=== PATIENT | male | born 1955 | race Caucasian/White ===

== ENCOUNTER 2019-04-06 18:40 | Emergency (ER) | payer MEDICAID ==
[~2019-04-06] VITALS: Ht 170.2 cm; Wt 80.3 kg
[~2019-04-06 18:40] MED LIST: ACET-2139 PO; AMLO10TA4 GT; ASPI-992 PO; BACL10TA GT; BISA10SU61 RC; CLON1PAT13 TD; CRAN3875 GT; DOCU50LI GT; ESOM40CA PO; HYDR-4075 PO; LABE200T5 PO; LEVE750T4 GT; LISI40TA4 GT; MAGN400O6 GT; METF-440 PO; MULT473L GT; NA P133E RC; POTA20TA74 GT; SPIR50TA GT
--- NOTE | 2019-04-06 19:01 | NUR ---
PATIENT BIB [facility] SENT HERE FROM SNF FOR FACIAL DROOP. HX OF CVA & LT FACIAL DROOP. PATIENT WITH TRACH ON COOL AEROSOL. A&O X 3, NO ACUTE DISTRESS. VERBALLY RESPONSIVE.
--- NOTE | 2019-04-06 19:02 | NUR ---
DR SULLIVAN AT BEDSIDE
[2019-04-06 19:08] LABS: BASOPHILS % (AUTO) 0.5 % (0.0-2.0); EOSINOPHILS % (AUTO) 1.3 % (0.0-6.0); HEMATOCRIT 32 % (39-51); HEMOGLOBIN 10.8 g/dL (13.5-17.5); LYMPHOCYTES # (AUTO) 1.7 /CMM (0.8-4.8); LYMPHOCYTES % (AUTO) 18.3 % (20.0-44.0); MEAN CORPUSCULAR HGB CONC 34 g/dl (31.0-36.0); MEAN CORPUSCULAR VOLUME 87 fL (80-96); MONOCYTES # (AUTO) 0.5 /CMM (0.1-1.30); MONOCYTES % (AUTO) 5.5 % (2.0-12.0); NEUTROPHILS # (AUTO) 6.7 /CMM (1.8-8.9); NEUTROPHILS % (AUTO) 74.4 % (43.0-81.0); PLATELET COUNT (AUTO) 179 /CMM (150-450); RED BLOOD CELL COUNT(AUTO) 3.69 MIL/uL (4.5-6.0); WHITE BLOOD COUNT (AUTO) 9.1 K/uL (4.3-11.0)
--- NOTE | 2019-04-06 19:13 | NUR ---
ONLINE CONTENT EDITOR AT BEDSIDE
--- NOTE | 2019-04-06 19:13 | NUR ---
REPORT GIVEN TO MYAH COSBY FOR CELINE
--- NOTE | 2019-04-06 19:15 | NUR ---
Robinson burgess in [facility] - 04/06/19 at 1926 by LARRY RECEIVED PT ADN REPORT FROM ALEA LEVY FOR CELINE.
--- NOTE | 2019-04-06 19:15 | NUR ---
PT AND REPORT RECEIVED FROM ALEA LEVY FOR CELINE.
[2019-04-06 19:17] LABS: CALCIUM, SERUM 8.3 mg/dL (8.5-10.1); CARBON DIOXIDE 36 mmol/L (21-32); CHLORIDE 103 mmol/L (98-107); CREATININE 0.8 mg/dL (0.6-1.3); GLUCOSE 222 mg/dL (74-106); POTASSIUM 3.9 mmol/L (3.5-5.1); SODIUM SERUM 142 mmol/L (136-145); UREA NITROGEN, BLOOD 12 mg/dL (7-18)
[2019-04-06 19:25] LABS: ALANINE AMINOTRANSFERASE 18 U/L (12-78); ALKALINE PHOSPHATASE 70 U/L (46-116); ASPARTATE AMINOTRANSFERASE 17 U/L (15-37); BILIRUBIN,DIRECT 0.1 mg/dL (0.0-0.2); BILIRUBIN,TOTAL 0.2 mg/dL (0.2-1.0)
--- NOTE | 2019-04-06 19:25 | NUR ---
URINE SPECIMEN UBTAINED VIA STRAUGHT CATH. SENT TO LAB
--- NOTE | 2019-04-06 19:25 | NUR ---
Robinson burgess in [facility] - 04/06/19 at 1926 by LARRY URINE COLLECTED VIA STRAIGHT CAT SENT TO LAB.
[2019-04-06 19:26] LABS: ALBUMIN 2.8 g/dL (3.4-5.0)
[2019-04-06 19:27] LABS: TOTAL PROTEIN, SERUM 6.6 g/dL (6.4-8.2)
--- NOTE | 2019-04-06 19:30 | NUR ---
BEING WHEELED TO CT. WENT WITH PT AT BEDSIDE
[2019-04-06 19:31] LABS: BILIRUBIN,URINE Negative (NEGATIVE); BLOOD, URINE Trace-intact Ery/uL (NEGATIVE); COLOR,URINE Yellow (YELLOW); KETONES,URINE Negative (NEGATIVE); LEUKOCYTE ESTERASE ,URINE Negative (NEGATIVE); NITRITE, URINE Negative (NEGATIVE); PROTEIN,URINE Negative (NEGATIVE); UGLUCOSE Negative (NEGATIVE)
--- NOTE | 2019-04-06 19:40 | NUR ---
BACK TO ER BED [address]
[2019-04-06 19:42] LABS: APPEARANCE,URINE SLIGHTLY CLOUDY (CLEAR)
[2019-04-06 19:47] LABS: BACTERIA,URINE Few /HPF (None Seen); SQUAMOUS EPITHELIAL CELL,UR Few /HPF (None Seen); WBC,URINE 0-2 /HPF (0-3)
--- NOTE | 2019-04-06 19:49 | NUR ---
Robinson burgess in ED - 04/06/19 at 1951 by JUAN PT IS GOING TO CT VIA [facility].
--- NOTE | 2019-04-06 20:31 | NUR ---
CALLED [facility] RE: RADIOLOGY READ.
--- NOTE | 2019-04-06 20:50 | NUR ---
EMT SENT CT IMAGING RESULT TO DR. RIVERO - NEUROLOGY.
--- NOTE | 2019-04-06 21:02 | NUR ---
LUIS EDUARDO EWING 2333 TRIP NO #[id number]
--- NOTE | 2019-04-06 21:21 | NUR ---
CALLED [facility] TO GIVE REPORT THAT PT IS GOING BACK. ETA P/U [id number]. REPORT GIVEN TP ALEA BURGER
[2019-04-06 21:53] LABS: BAND % (MANUAL) 2 % (0.0-5.0); EOSINOPHILS % (MANUAL) 1 % (0-4); LYMPHOCYTES % (MANUAL) 19 % (16-48); MONOCYTES % (MANUAL) 5 % (0-11.0); MYELOCYTES % 2 % (0-0); NEUTROPHILS % (MANUAL) 69 (42-76); REACTIVE LYMPHOCYTES 2 % (0-0)
--- NOTE | 2019-04-06 22:34 | NUR ---
Patient discharged to home in stable condition TO SNF. Written and verbal after care instructions given. EMT verbalizes understanding of instruction. PT'S BP IS 158/73. AMBULANZ EMT'S ARE TAKING THE PT BACK TO [facility] VIA AMBULANCE. COPY OF ALL LABS AND IMAGING IN CHART. REPORT GIVEN TO [facility] BY ALEA GLASGOW.
[2019-04-06 22:40] VITALS: BP 158/73
== END 2019-04-06 22:45 | disposition home or self-care (01) ==
LOC: ER 18:42
DX: I62.03 Nontraumatic chronic subdural hemorrhage (principal); I10 Essential (primary) hypertension; E11.9 Type 2 diabetes mellitus without complications; R51 Headache; Z93.1 Gastrostomy status; Z79.82 Long term (current) use of aspirin; Z98.2 Presence of cerebrospinal fluid drainage device; Z93.0 Tracheostomy status
CPT/HCPCS: 36415; 70450-TC; 71045-TC; 80048-TC; 80076-TC; 81000-TC; 84484-TC; 85025-TC

== ENCOUNTER 2021-12-28 13:11 | Inpatient (IN) | payer MEDICARE, OTHER ==
[~2021-12-28] VITALS: Ht 177.8 cm; Wt 99.8 kg
[~2021-12-28 13:11] MED LIST changes: +LISI40TA13 GT; -LISI40TA4 GT
--- NOTE | 2021-12-28 13:15 | NUR ---
BIB RA 102 FROM SNF FOR WEAKNESS AND "ALTERED MORE THAN USUAL," LWN 0900 TODAY. REPORTED TO BE HYPOTENSIVE IN THE FIELD WITH SYSTOLIC BP IN 60s. 250 ML NS GIVEN MASS SPEC, CURRENT BP 100/50. BS 288 MASS SPEC. AAOX3, BREATHING EVEN AND UNLABORED. NOT IN RESP DISTRESS. POX 100% ON 4L TRACH COLAR. FEVER. WILL CONTINUE TO MONITOR.
--- NOTE | 2021-12-28 13:30 | NUR ---
urine sample obtained and sent to lab
[2021-12-28] MEDS ORDERED: ACETAMINOPHEN 650 MG/SUPP.RECT RC ONE ×2 (14:23→14:30)
[2021-12-28] MEDS ORDERED: IV NS 0.9% 1,000 ML BAG IV ONE ×2 (14:30→17:00)
[2021-12-28 14:47] LABS: BASOPHILS % (AUTO) 0.3 % (0.0-2.0); HEMATOCRIT 33 % (39-51); HEMOGLOBIN 10.6 g/dL (13.5-17.5); LYMPHOCYTES # (AUTO) 0.7 K/uL (0.8-4.8); LYMPHOCYTES % (AUTO) 7.9 % (20.0-44.0); MEAN CORPUSCULAR HGB CONC 32 g/dl (31.0-36.0); MEAN CORPUSCULAR VOLUME 89 fL (80-96); MONOCYTES # (AUTO) 0.5 K/uL (0.1-1.30); MONOCYTES % (AUTO) 5.9 % (2.0-12.0); NEUTROPHILS # (AUTO) 7.3 K/uL (1.8-8.9); NEUTROPHILS % (AUTO) 85.9 % (43.0-81.0); PLATELET COUNT (AUTO) 156 K/uL (150-450); WHITE BLOOD COUNT (AUTO) 8.5 K/uL (4.3-11.0)
--- NOTE | 2021-12-28 15:04 | NUR ---
TAKEN TO CT
[2021-12-28 15:19] LABS: CALCIUM, SERUM 9.1 mg/dL (8.5-10.1); CARBON DIOXIDE 28 mmol/L (21-32); CHLORIDE 107 mmol/L (98-107); CREATININE 2.1 mg/dL (0.6-1.3); GLUCOSE 171 mg/dL (74-106); POTASSIUM 4.4 mmol/L (3.5-5.1); SODIUM SERUM 143 mmol/L (136-145); UREA NITROGEN, BLOOD 32 mg/dL (7-18)
[2021-12-28 15:30] LABS: ALANINE AMINOTRANSFERASE 35 U/L (12-78); ALBUMIN 2.6 g/dL (3.4-5.0); ALKALINE PHOSPHATASE 26 U/L (46-116); ASPARTATE AMINOTRANSFERASE 41 U/L (15-37); BILIRUBIN,DIRECT 0.2 mg/dL (0.0-0.2); BILIRUBIN,TOTAL 0.4 mg/dL (0.2-1.0); TOTAL PROTEIN, SERUM 6.8 g/dL (6.4-8.2)
[2021-12-28] MEDS ORDERED: CLON0.2T GT (15:59)
[2021-12-28] MEDS ORDERED: FENO145T21 GT (15:59)
[2021-12-28] MEDS ORDERED: DIVA500T2 GT (15:59)
[2021-12-28] MEDS ORDERED: IPRA4AER IH ×2 (15:59)
[2021-12-28] MEDS ORDERED: OMEG1600 GT (15:59)
[2021-12-28] MEDS ORDERED: FERR325T23 GT (15:59)
[2021-12-28] MEDS ORDERED: PIPERACILLIN /TAZOBACTAM 3.375 G in IV D5W 50 ML IV ONE (16:00)
--- NOTE | 2021-12-28 16:17 | NUR ---
SENT HEAD CT TO DR. RIVERO
[2021-12-28 16:47] LABS: BILIRUBIN,URINE SMALL (NEGATIVE); COLOR,URINE YELLOW (YELLOW); LEUKOCYTE ESTERASE ,URINE NEGATIVE (NEGATIVE); NITRITE, URINE NEGATIVE (NEGATIVE); PROTEIN,URINE 100 mg/dl (NEGATIVE); UGLUCOSE NEGATIVE (NEGATIVE); UROBILINOGEN,URINE 0.2 EU/dL (0.2)
[2021-12-28 16:58] LABS: BACTERIA,URINE Few /HPF (None Seen); COARSE GRANULAR CASTS,URINE Few /LPF (None Seen); HYALINE CASTS, URINE Rare /LPF (None Seen); SQUAMOUS EPITHELIAL CELL,UR Few /HPF (None Seen); WBC,URINE 0-2 /HPF (0-3)
[2021-12-28] MEDS ORDERED: DEXTROSE 50%-WATER 50 ML DISP.SYRIN IV PRN (17:00)
[2021-12-28] MEDS ORDERED: ONDANSETRON HCL/PF 4 MG/2 ML VIAL IVP PRN (17:00)
[2021-12-28] MEDS ORDERED: ALBUTEROL FS 2.5 MG/3 ML VIAL.NEB NEB PRN (17:00)
[2021-12-28] MEDS ORDERED: MORPHINE SULFATE INJ 2 MG/ML DISP.SYRIN IV PRN (17:00)
[2021-12-28] MEDS ORDERED: TEMAZEPAM 15 MG CAPSULE GT PRN (17:00)
[2021-12-28] MEDS ORDERED: HYDROCODONE/APAP 5/325MG TABLET GT PRN (17:00)
[2021-12-28] MEDS ORDERED: BISACODYL SUPP (10 MG) 10 MG/SUPP.RECT SUPP.RECT RC PRN (17:30)
[2021-12-28] MEDS ORDERED: hydrALAZINE HCL 10 MG TABLET PO PRN (17:30)
[2021-12-28] MEDS ORDERED: HOME MED MISCELLANEOUS XX SCH ×2 (17:30)
[2021-12-28] MEDS ORDERED: NA PHOS,M-B/NA PHOS,DI-BA 1 EA ENEMA RC PRN (17:30)
[2021-12-28] MEDS ORDERED: MAGNESIUM HYDROXIDE 30 ML UDC GT PRN (17:30)
--- NOTE | 2021-12-28 18:28 | NUR ---
PICC LINE NURSE AT BEDSIDE
[2021-12-28] MEDS: BLOOD SUGAR DIAGNOSTIC 1 EACH STRIP IN SCH (18:46)
[2021-12-28] MEDS ORDERED: Z GUARD REMEDY 4 OZ OINT TP PRN (19:30)
[2021-12-28] MEDS ORDERED: ACETAMINOPHEN 650 MG/20.3 ML UDC GT PRN (19:30)
--- NOTE | 2021-12-28 19:43 | NUR ---
LACTIC ACID; 2.9; NOTIFIED DONALDO TAYLOR
[2021-12-28] MEDS: VANCOMYCIN 500 MG in IV D5W 100ml IV SCH (19:54)
[2021-12-28] MEDS ORDERED: HEPARIN SODIUM, PORCINE 5000 UNITS/1 ML VIAL ONE (20:22)
[2021-12-28] MEDS ORDERED: CLONIDINE HCL 0.1 MG TABLET ONE ×2 (20:22→21:27)
[2021-12-28] MEDS ORDERED: DIVALPROEX SODIUM 500 MG TABLET.DR PO ONE (20:22)
[2021-12-28] MEDS ORDERED: LEVETIRACETAM (500MG) 500 MG/5 ML VIAL IV ONE (20:22)
[2021-12-28] MEDS: HEPARIN SODIUM, PORCINE 5000 UNITS/1 ML VIAL SQ SCH (20:34)
[2021-12-28] MEDS ORDERED: LEVETIRACETAM SOL (5 ML) 100 MG/ML UDC ONE (21:27)
[2021-12-28] MEDS ORDERED: FENOFIBRATE NANOCRYS (145 MG) 145 MG TABLET ONE (21:33)
[2021-12-28] MEDS ORDERED: PIPERACILLIN /TAZOBACTAM 3.375 G VIAL IV ONE (21:33)
[2021-12-28] MEDS: LEVETIRACETAM SOL (5 ML) 100 MG/ML UDC GT SCH (21:42)
[2021-12-28] MEDS: CLONIDINE HCL 0.1 MG TABLET GT SCH (21:42)
[2021-12-28] MEDS: FENOFIBRATE NANOCRYS (145 MG) 145 MG TABLET GT SCH (21:42)
[2021-12-28] MEDS: DIVALPROEX SODIUM 125 MG CAP.SPRINK GT SCH (21:42)
[2021-12-28] MEDS: ZOSYN IVPB 3.375 G in IV D5W 50ml IV SCH (21:43)
[2021-12-29] MEDS: BLOOD SUGAR DIAGNOSTIC 1 EACH STRIP IN SCH ×4 (01:10→18:27)
--- NOTE | 2021-12-29 01:11 | NUR ---
POC GLUCOSE 115. NO INSULIN PER SLIDING SCALE PROTOCOL
--- NOTE | 2021-12-29 03:30 | NUR ---
PT SLEEPING COMFORTABLY BREATHING EVEN AND UNLABORED EASILY AROUSABLE. PT ON MONITOR AND ALL V/S STABLE.
[2021-12-29] MEDS: ZOSYN IVPB 3.375 G in IV D5W 50ml IV SCH ×4 (03:45→21:44)
[2021-12-29] MEDS: IV NS 0.9% 1,000 ML IV PRN (04:09)
[2021-12-29 04:47] LABS: BASOPHILS % (AUTO) 0.2 % (0.0-2.0); EOSINOPHILS % (AUTO) 0.1 % (0.0-6.0); HEMATOCRIT 29 % (39-51); HEMOGLOBIN 9.7 g/dL (13.5-17.5); LYMPHOCYTES # (AUTO) 0.6 K/uL (0.8-4.8); LYMPHOCYTES % (AUTO) 9.5 % (20.0-44.0); MEAN CORPUSCULAR HGB CONC 33 g/dl (31.0-36.0); MEAN CORPUSCULAR VOLUME 88 fL (80-96); MONOCYTES # (AUTO) 0.4 K/uL (0.1-1.30); MONOCYTES % (AUTO) 5.9 % (2.0-12.0); NEUTROPHILS # (AUTO) 5.8 K/uL (1.8-8.9); NEUTROPHILS % (AUTO) 84.3 % (43.0-81.0); PLATELET COUNT (AUTO) 141 K/uL (150-450); RED BLOOD CELL COUNT(AUTO) 3.35 MIL/uL (4.5-6.0); WHITE BLOOD COUNT (AUTO) 6.8 K/uL (4.3-11.0)
[2021-12-29 05:10] LABS: CALCIUM, SERUM 8.5 mg/dL (8.5-10.1); CREATININE 1.5 mg/dL (0.6-1.3); MAGNESIUM 2.2 mg/dL (1.8-2.4); PHOSPHORUS 2.6 mg/dL (2.5-4.9); POTASSIUM 4.1 mmol/L (3.5-5.1)
[2021-12-29 05:23] LABS: THYROID STIMULATING HORMONE 1.081 uIU/mL (0.358-3.74)
--- NOTE | 2021-12-29 06:40 | NUR ---
POC GLUCOSE 113; NO INSULIN PER PROTOCOL.
--- NOTE | 2021-12-29 07:24 | NUR ---
REPORT GIVEN TO ALEXIS PRUETT FOR CELINE
[2021-12-29] MEDS: VANCOMYCIN 500 MG in IV D5W 100ml IV SCH ×2 (07:30→20:22)
[2021-12-29] MEDS: CLONIDINE HCL 0.1 MG TABLET GT SCH ×2 (09:00→21:35)
[2021-12-29] MEDS: DIVALPROEX SODIUM 125 MG CAP.SPRINK GT SCH ×3 (09:00→16:12)
[2021-12-29] MEDS: DOCUSATE SODIUM LIQ 100 MG/10 ML UDC GT SCH ×2 (09:00→16:11)
[2021-12-29] MEDS: LEVETIRACETAM SOL (5 ML) 100 MG/ML UDC GT SCH ×2 (09:00→21:35)
[2021-12-29] MEDS: PANTOPRAZOLE 40 MG/PACK PACK GT SCH (09:00)
[2021-12-29] MEDS ORDERED: PANTOPRAZOLE 40 MG VIAL IV SCH (09:00)
[2021-12-29] MEDS: FERROUS SULFATE (325 MG) 325 MG/TAB TABLET GT SCH (09:00)
[2021-12-29] MEDS: HEPARIN SODIUM, PORCINE 5000 UNITS/1 ML VIAL SQ SCH ×2 (09:00→21:33)
--- NOTE | 2021-12-29 09:45 | NUR ---
WOUND CARE CONSULT: PT PRESENTS WITH REDNESS TO CHEST AND LEFT ARM WITH PITTING EDEMA TO LEFT ARM, G TUBE SITE REDNESS WITH SOME GREENISH DRAINAGE AROUND CLAMPED G TUBE, PRESENT ON ADMISSION. THERE ARE DRY SCABS AND DISCOLORATIONS TO LOWER LEGS, PRESENT ON ADMISSION. PT REFUSED TO BE TURNED FOR FULL SKIN ASSESSMENT BUT PER DNP, THERE IS SACRAL REDNESS. SURGICAL CONSULT CALLED TO DR ROTHMAN. RECOMMENDATIONS MADE FOR SKIN PROTECTION. DISCUSSED WITH NURSING STAFF. MD IN AGREEMENT WITH PLAN OF CARE.
--- NOTE | 2021-12-29 09:58 | NUR ---
PT IS WHEELED TO CT SCAN VIA [facility].
--- NOTE | 2021-12-29 10:07 | NUR ---
ROOM 324-2
[2021-12-29] MEDS ORDERED: DIVALPROEX SODIUM 500 MG TABLET.DR PO ONE (10:12)
[2021-12-29] MEDS ORDERED: FERROUS SULFATE (325 MG) 325 MG/TAB TABLET ONE (10:12)
[2021-12-29] MEDS ORDERED: HEPARIN SODIUM, PORCINE 5000 UNITS/1 ML VIAL ONE (10:12)
[2021-12-29] MEDS ORDERED: CLONIDINE HCL 0.1 MG TABLET ONE (10:13)
[2021-12-29] MEDS ORDERED: DIVALPROEX SODIUM 250 MG TABLET.DR PO ONE (10:13)
[2021-12-29] MEDS ORDERED: DOCUSATE SODIUM LIQ 100 MG/10 ML UDC ONE (10:13)
[2021-12-29] MEDS ORDERED: LEVETIRACETAM (250 MG) 250 MG TABLET PO ONE (10:14)
[2021-12-29] MEDS ORDERED: PANTOPRAZOLE 40 MG/PACK PACK ONE (10:14)
--- NOTE | 2021-12-29 11:01 | NUR ---
REPORT GIVEN TO TERESA. AWAITING TRANSFER TO FLOOR.
[2021-12-29] MEDS: INSULIN REGULAR, HUMAN 100 UNIT/ML 3 ML VIAL SQ PRN (12:13)
[2021-12-29] MEDS: Z GUARD REMEDY 4 OZ OINT TP SCH ×2 (14:12→21:36)
--- NOTE | 2021-12-29 19:20 | NUR ---
CONTRACT NEGOTIATION MANAGER NOTES Pt IS A/O x2-3. CURRENTLY LYING IN BED. Pt IS ON TRACH 8L AND TOLERATING WELL. SAFETY MEASURES IN PLACE; BED IS LOCKED AND IN LOWEST POSITION. SIDE RAILS UPx3. BED SIDE TABLE AND CALL LIGHT WITHIN REACH. WILL ENDORSE TO ONCOMING SHIFT.T
[2021-12-29 20:00] VITALS: BP 128/68
[2021-12-29] MEDS: FENOFIBRATE NANOCRYS (145 MG) 145 MG TABLET GT SCH (21:34)
[2021-12-30] VITALS (7 sets, daily range): BP systolic 119–140; BP diastolic 62–84
[2021-12-30] MEDS: BLOOD SUGAR DIAGNOSTIC 1 EACH STRIP IN SCH ×4 (00:38→18:16)
[2021-12-30] MEDS: IV NS 0.9% 1,000 ML IV PRN ×2 (00:41→10:47)
[2021-12-30] MEDS: INSULIN REGULAR, HUMAN 100 UNIT/ML 3 ML VIAL SQ PRN ×3 (00:46→18:15)
[2021-12-30] MEDS: ZOSYN IVPB 3.375 G in IV D5W 50ml IV SCH ×4 (03:34→23:01)
--- NOTE | 2021-12-30 06:48 | NUR ---
CLOSING NOTES WITH TRACH 8 LITERS AERT AND ORIENTTED X2 REFUSED HIS AM LABS "i DON'TWANT NO ONE TO STICK ME" WHEN i DID HIS BLOOD SUGAR HE BECAME MAD AT ME AND STATED "NO MORE" HE IS FRIENDLY BUT WHEN IT COME TO TURNING HIM CLEANING HIM REMOVING TAPE ACCUCHECKS HE YELLS OUT OUCH BEFORE EVEN BEING TOUCHED OR MOVED.
--- NOTE | 2021-12-30 08:06 | NUR ---
RN OPENING NOTES PATIENT AWAKE IN BED RESTING, A/O X2-3. NO S/S OF PAIN NOTED AT THIS TIME. ON TRACH, 8L, NO DISTRESS OR SHORTNESS OF BREATH NOTED. IV ACCESS R HAND AND R ARM MIDLINE, INTACT, PATENT AND FLUSHING WELL. PATIENT HAVE EXTERNAL MENTAL HEALTH THERAPIST, SR. AND HR 77. FALL AND SAFETY MEASURES IN PLACE, BED ALARM ON, BED IN LOW AND LOCK POSITION, CALL LIGHT AND TABLE WITHIN EASY REACH, SIDE RAILS UP X2. WILL CONTINUE TO MONITOR.
[2021-12-30 09:18] LABS: BASOPHILS % (AUTO) 0.3 % (0.0-2.0); EOSINOPHILS % (AUTO) 2.2 % (0.0-6.0); HEMATOCRIT 28 % (39-51); HEMOGLOBIN 9.2 g/dL (13.5-17.5); LYMPHOCYTES # (AUTO) 0.5 K/uL (0.8-4.8); LYMPHOCYTES % (AUTO) 10.3 % (20.0-44.0); MEAN CORPUSCULAR HGB CONC 33 g/dl (31.0-36.0); MEAN CORPUSCULAR VOLUME 87 fL (80-96); MONOCYTES # (AUTO) 0.4 K/uL (0.1-1.30); MONOCYTES % (AUTO) 8.7 % (2.0-12.0); NEUTROPHILS # (AUTO) 4.1 K/uL (1.8-8.9); NEUTROPHILS % (AUTO) 78.5 % (43.0-81.0); PLATELET COUNT (AUTO) 149 K/uL (150-450); RED BLOOD CELL COUNT(AUTO) 3.25 MIL/uL (4.5-6.0); WHITE BLOOD COUNT (AUTO) 5.2 K/uL (4.3-11.0)
[2021-12-30 09:21] LABS: CALCIUM, SERUM 8.5 mg/dL (8.5-10.1); POTASSIUM 3.4 mmol/L (3.5-5.1)
[2021-12-30] MEDS: PANTOPRAZOLE 40 MG/PACK PACK GT SCH (10:24)
[2021-12-30] MEDS: CLONIDINE HCL 0.1 MG TABLET GT SCH ×2 (10:24→21:45)
[2021-12-30] MEDS: LEVETIRACETAM SOL (5 ML) 100 MG/ML UDC GT SCH ×2 (10:24→21:46)
[2021-12-30] MEDS: FERROUS SULFATE (325 MG) 325 MG/TAB TABLET GT SCH (10:24)
[2021-12-30] MEDS: DOCUSATE SODIUM LIQ 100 MG/10 ML UDC GT SCH ×2 (10:24→17:04)
[2021-12-30] MEDS: HEPARIN SODIUM, PORCINE 5000 UNITS/1 ML VIAL SQ SCH ×2 (10:25→21:47)
[2021-12-30] MEDS: Z GUARD REMEDY 4 OZ OINT TP SCH ×2 (10:27→21:46)
[2021-12-30] MEDS: DIVALPROEX SODIUM 125 MG CAP.SPRINK GT SCH ×3 (10:32→17:04)
[2021-12-30] MEDS: VANCOMYCIN 1.5 GM in IV D5W 500 ML IV SCH (11:10)
--- NOTE | 2021-12-30 19:24 | NUR ---
RN CLOSING NOTES PATIENT AWAKE IN BED RESTING, A/O X2-3. NO S/S OF PAIN NOTED AT THIS TIME. ON TRACH, 8L, NO DISTRESS OR SHORTNESS OF BREATH NOTED. IV ACCESS R ARM MIDLINE, INTACT, PATENT AND FLUSHING WELL. PATIENT HAVE EXTERNAL MOUNTAIN OR GLACIER GUIDE, SR. AND HR 68. FALL AND SAFETY MEASURES IN PLACE, BED ALARM ON, BED IN LOW AND LOCK POSITION, CALL LIGHT AND TABLE WITHIN EASY REACH, SIDE RAILS UP X2. WILL ENDORSE TO HOSPITAL PHARMACIST.
[2021-12-30] MEDS ORDERED: JEVITY 1.2 CAL 1,000 ML BOTTLE GT PRN (19:30)
--- NOTE | 2021-12-30 19:45 | NUR ---
MALTED MILK MASHER OPENING NOTES PATIENT LAYING AWAKE IN BED. A/O X2-3. PATIENT WITH REGULAR AND UNLABORED BREATHING, ON TRACH 8 LPM TOLERATED WELL. NO SIGNS AND SYMPTOMS OF DISCOMFORT AT THIS TIME. NO COMPLAINS OF PAIN OR DISCOMFORT AT THIS TIME. IV ACCESS SAMANTHA MIDLINE SL . IV ACCESS PATENT AND INTACT. SAFETY PRECAUTIONS ENFORCED WITH BED LOCKED AND AT LOWEST POSITION. SIDERAILS UP X2. CALL LIGHT WITHIN REACH AT ALL TIMES. WILL CONTINUE TO MONITOR PATIENT.
[2021-12-30] MEDS: FENOFIBRATE NANOCRYS (145 MG) 145 MG TABLET GT SCH (21:45)
[2021-12-31] VITALS: BP 109/70
[2021-12-31] MEDS: VANCOMYCIN 1.5 GM in IV D5W 500 ML IV SCH ×3 (00:03→22:21)
[2021-12-31] MEDS: JEVITY 1.2 CAL 1,000 ML BOTTLE GT PRN (01:57)
[2021-12-31] MEDS: ZOSYN IVPB 3.375 G in IV D5W 50ml IV SCH ×4 (03:59→21:07)
[2021-12-31 04:00] VITALS: BP 126/54
[2021-12-31] MEDS: BLOOD SUGAR DIAGNOSTIC 1 EACH STRIP IN SCH ×4 (06:19→17:37)
--- NOTE | 2021-12-31 07:15 | NUR ---
KEY HOLDER CLOSING NOTES PATIENT STILL LAYING AWAKE IN BED. A/O X2-3. PATIENT WITH REGULAR AND UNLABORED BREATHING, ON TRACH 8 LPM TOLERATED WELL. NO SIGNS AND SYMPTOMS OF DISCOMFORT AT THIS TIME. NO COMPLAINS OF PAIN OR DISCOMFORT AT THIS TIME. PATIENT ON TELE MONITOR READING SR @ 65 BPM.IV ACCESS SAMANTHA MIDLINE SL . IV ACCESS PATENT AND INTACT. SAFETY PRECAUTIONS ENFORCED WITH BED LOCKED AND AT LOWEST POSITION. SIDERAILS UP X2. CALL LIGHT WITHIN REACH AT ALL TIMES. WILL ENDORSE CONTINUITY OF CARE TO DAY SHIFT NURSE.
--- NOTE | 2021-12-31 07:24 | NUR ---
RN OPENING NOTES RECEIVED PATIENT AWAKE IN BED RESTING, A/O X2-3. NO S/S OF PAIN NOTED AT THIS TIME. PATIENT BREATHING EVENLY AND NONLABORED ON TRACH, 8L, NO DISTRESS OR SHORTNESS OF BREATH NOTED. IV ACCESS R ARM MIDLINE, INTACT, PATENT AND FLUSHING WELL. PATIENT HAVE EXTERNAL EDDY CURRENT INSPECTOR. FALL AND SAFETY MEASURES IN PLACE, BED ALARM ON, BED IN LOW AND LOCK POSITION, CALL LIGHT AND TABLE WITHIN EASY REACH, SIDE RAILS UP X2. WILL CONTINUE TO MONITOR.
[2021-12-31] MEDS: INSULIN REGULAR, HUMAN 100 UNIT/ML 3 ML VIAL SQ PRN ×3 (07:25→17:38)
[2021-12-31 08:31] VITALS: BP 144/91
[2021-12-31] MEDS: DIVALPROEX SODIUM 125 MG CAP.SPRINK GT SCH ×3 (08:34→16:36)
[2021-12-31] MEDS: DOCUSATE SODIUM LIQ 100 MG/10 ML UDC GT SCH ×2 (08:34→16:14)
[2021-12-31] MEDS: PANTOPRAZOLE 40 MG/PACK PACK GT SCH (08:34)
[2021-12-31] MEDS: LEVETIRACETAM SOL (5 ML) 100 MG/ML UDC GT SCH ×2 (08:35→20:52)
[2021-12-31] MEDS: CLONIDINE HCL 0.1 MG TABLET GT SCH ×2 (08:35→20:52)
[2021-12-31] MEDS: FERROUS SULFATE (325 MG) 325 MG/TAB TABLET GT SCH (08:35)
[2021-12-31] MEDS: HEPARIN SODIUM, PORCINE 5000 UNITS/1 ML VIAL SQ SCH ×2 (08:37→20:57)
[2021-12-31] MEDS: Z GUARD REMEDY 4 OZ OINT TP SCH ×2 (08:38→21:03)
[2021-12-31] MEDS ORDERED: POTASSIUM CHLORIDE 20 MEQ TAB.PRT.SR PO SCH (10:30)
[2021-12-31 12:34] VITALS: BP 138/89
[2021-12-31 12:40] LABS: BASOPHILS % (AUTO) 0.4 % (0.0-2.0); EOSINOPHILS % (AUTO) 3.2 % (0.0-6.0); HEMATOCRIT 26 % (39-51); HEMOGLOBIN 8.8 g/dL (13.5-17.5); LYMPHOCYTES # (AUTO) 0.6 K/uL (0.8-4.8); LYMPHOCYTES % (AUTO) 15.3 % (20.0-44.0); MEAN CORPUSCULAR HGB CONC 34 g/dl (31.0-36.0); MEAN CORPUSCULAR VOLUME 86 fL (80-96); MONOCYTES # (AUTO) 0.3 K/uL (0.1-1.30); MONOCYTES % (AUTO) 6.8 % (2.0-12.0); NEUTROPHILS # (AUTO) 3.1 K/uL (1.8-8.9); NEUTROPHILS % (AUTO) 74.3 % (43.0-81.0); PLATELET COUNT (AUTO) 156 K/uL (150-450); RED BLOOD CELL COUNT(AUTO) 3.03 MIL/uL (4.5-6.0); WHITE BLOOD COUNT (AUTO) 4.1 K/uL (4.3-11.0)
[2021-12-31 12:56] LABS: CALCIUM, SERUM 7.9 mg/dL (8.5-10.1); POTASSIUM 3.1 mmol/L (3.5-5.1)
--- NOTE | 2021-12-31 13:00 | NUR ---
RN NOTE MD GAVE NEW ORDER FOR POTASSIUM MEQ 20 ONE TIME
[2021-12-31] MEDS ORDERED: POTASSIUM CHLORIDE 20 MEQ TAB.PRT.SR PO ONE (14:00)
[2021-12-31 16:03] VITALS: BP 141/66
[2021-12-31] MEDS: MUPIROCIN 2% CREAM 22 GM TUBE TP SCH (16:45)
--- NOTE | 2021-12-31 17:38 | NUR ---
RN NOTE PATIENT ADAMANTLY REFUSED ACCUCHECK. EXPLAINED RISK AND BENEFITS X 2. STILL REFUSED WILL CONTINUE TO EDUCATE
--- NOTE | 2021-12-31 18:33 | NUR ---
RN CLOSING NOTES PATIENT AWAKE IN BED RESTING, A/O X2-3. NO S/S OF PAIN NOTED AT THIS TIME. PATIENT BREATHING EVENLY AND NONLABORED ON TRACH, 8L, NO DISTRESS OR SHORTNESS OF BREATH NOTED. IV ACCESS R ARM MIDLINE, INTACT, PATENT AND FLUSHING WELL. PATIENT HAVE EXTERNAL MANAGER PROTEIN SHOWING NSR. ALL MEDICATIONS GIVEN ORDERED. PATIENT KEPT CLEAN AND DRY, REPOSITIONED AND TURNED PER PROTOCOL. FALL AND SAFETY MEASURES IN PLACE, BED ALARM ON, BED IN LOW AND LOCK POSITION, CALL LIGHT AND TABLE WITHIN EASY REACH, SIDE RAILS UP X2. WILL ENDORSE TO ONCOMING SHIFT.
--- NOTE | 2021-12-31 19:45 | NUR ---
EXECUTIVE PILOT OPENING NOTES PATIENT LAYING AWAKE IN BED. A/O X2-3. PATIENT WITH REGULAR AND UNLABORED BREATHING, ON TRACH 8 LPM TOLERATED WELL. NO SIGNS AND SYMPTOMS OF DISCOMFORT AT THIS TIME. NO COMPLAINS OF PAIN OR DISCOMFORT AT THIS TIME. GTUBE JEVITY FEEDING RUNNING @ 25ML/HR TOLERATED WELL. IV ACCESS SAMANTHA MIDLINE SL . IV ACCESS PATENT AND INTACT. SAFETY PRECAUTIONS ENFORCED WITH BED LOCKED AND AT LOWEST POSITION. SIDERAILS UP X2. CALL LIGHT WITHIN REACH AT ALL TIMES. WILL CONTINUE TO MONITOR PATIENT.
[2021-12-31 20:00] VITALS: BP 154/75
[2021-12-31] MEDS: FENOFIBRATE NANOCRYS (145 MG) 145 MG TABLET GT SCH (21:05)
--- NOTE | 2021-12-31 22:45 | NUR ---
TRUST ADMINISTRATOR NOTES PATIENT G TUBE LEAKING STOPPED FEEDING. NOTIFIED HOSPITALIST NO NEW ORDERS GIVEN WILL CONTINUE TO MONITOR PATIENT.
[2022-01-01] VITALS: BP 167/71
[2022-01-01] MEDS: ZOSYN IVPB 3.375 G in IV D5W 50ml IV SCH ×4 (03:23→21:47)
--- NOTE | 2022-01-01 03:25 | NUR ---
PIPELINE TECHNICIAN NOTES PATIENT COMPLAINED OF PAIN. ADMINISTERED MORPHINE ORDERED BY HOSPITALIST. WILL CONTINUE TO MONITOR PATIENT.
[2022-01-01 04:00] VITALS: BP 153/80
[2022-01-01] MEDS: BLOOD SUGAR DIAGNOSTIC 1 EACH STRIP IN SCH ×4 (06:15→17:15)
--- NOTE | 2022-01-01 07:02 | NUR ---
GUEST RELATIONS COORDINATOR CLOSING NOTES PATIENT STILL LAYING AWAKE IN BED. A/O X2-3. PATIENT WITH REGULAR AND UNLABORED BREATHING, ON TRACH 8 LPM TOLERATED WELL. NO SIGNS AND SYMPTOMS OF DISCOMFORT AT THIS TIME. NO COMPLAINS OF PAIN OR DISCOMFORT AT THIS TIME. PATIENT ON TELE MONITOR READING SR @ 64 BPM. IV ACCESS SAMANTHA MIDLINE SL . IV ACCESS PATENT AND INTACT. SAFETY PRECAUTIONS ENFORCED WITH BED LOCKED AND AT LOWEST POSITION. SIDERAILS UP X2. CALL LIGHT WITHIN REACH AT ALL TIMES. WILL ENDORSE CONTINUITY OF CARE TO DAY SHIFT NURSE.
--- NOTE | 2022-01-01 07:59 | NUR ---
RETORT KILN BURNER OPENING NOTES RECEIVED PATIENT IN BED, AWAKE, A/O X2. PATIENT ON T-PIECE AT 8 LPM; BREATHING EVEN AND UNLABORED; NO SOB NOTED. NO COMPLAINS OF PAIN. TELE MONITOR WITH A CURRENT READING OF NSR 63 BPM. SAMANTHA MIDLINE IN PLACE AND INTACT. PER PROGRAMMING INSTRUCTOR NURSE G-TUBE IS LEAKING AND MD IS AWARE. FEEDING IS STOPPED AT THIS TIME. SAFETY PRECAUTIONS IN PLACE; BED IN LOW POSITION AND LOCKED, RAILS UP X2, CALL LIGHT WITHIN REACH. WILL CONTINUE TO MONITOR PATIENT.
[2022-01-01 08:36] VITALS: BP 171/86
[2022-01-01] MEDS: CLONIDINE HCL 0.1 MG TABLET GT SCH ×2 (09:18→21:50)
[2022-01-01] MEDS: PANTOPRAZOLE 40 MG/PACK PACK GT SCH (09:19)
[2022-01-01] MEDS: HEPARIN SODIUM, PORCINE 5000 UNITS/1 ML VIAL SQ SCH ×2 (09:19→21:51)
[2022-01-01] MEDS: LEVETIRACETAM SOL (5 ML) 100 MG/ML UDC GT SCH ×2 (09:25→21:50)
[2022-01-01] MEDS: DOCUSATE SODIUM LIQ 100 MG/10 ML UDC GT SCH ×2 (09:25→16:22)
[2022-01-01] MEDS: Z GUARD REMEDY 4 OZ OINT TP SCH ×2 (09:26→21:51)
[2022-01-01] MEDS: FERROUS SULFATE (325 MG) 325 MG/TAB TABLET GT SCH (09:26)
[2022-01-01] MEDS: MUPIROCIN 2% CREAM 22 GM TUBE TP SCH ×2 (09:26→16:31)
[2022-01-01] MEDS: DIVALPROEX SODIUM 125 MG CAP.SPRINK GT SCH ×3 (09:27→16:22)
[2022-01-01 12:00] VITALS: BP 163/80
[2022-01-01 14:40] LABS: CALCIUM, SERUM 8.6 mg/dL (8.5-10.1); CREATININE 1.4 mg/dL (0.6-1.3); POTASSIUM 3.3 mmol/L (3.5-5.1)
[2022-01-01 16:01] VITALS: BP 165/77
[2022-01-01] MEDS: INSULIN REGULAR, HUMAN 100 UNIT/ML 3 ML VIAL SQ PRN (17:58)
--- NOTE | 2022-01-01 18:45 | NUR ---
ELECTROPLATING WORKER CLOSING NOTES PATIENT IN BED, AWAKE, A/O X2. PATIENT ON T-PIECE AT 8 LPM; BREATHING EVEN AND UNLABORED; NO SOB NOTED DURING SHIFT. NO COMPLAINS OF PAIN. TELE MONITOR WITH A CURRENT READING OF NSR 66 BPM. SAMANTHA MIDLINE IN PLACE AND INTACT. G-TUBE IN PLACE WITH NO LEAKING TODAY, NO RESIDUAL. JEVITY 1.2 IS RUNNING AT 25 MLS/HR. ALL NEEDS ATTENDED DURING THE DAY. SAFETY PRECAUTIONS IN PLACE; BED IN LOW POSITION AND LOCKED, RAILS UP X2, CALL LIGHT WITHIN REACH. WILL ENDORSE TO SCRAPER TENDER NURSE FOR CELINE.
--- NOTE | 2022-01-01 19:36 | NUR ---
RN OPENING NOTES RECEIVED PT IN BED, AWAKE. AOx2, ABLE TO MAKE NEEDS KNOWN. ON TRACH 8 LPM AND TOLERATING WELL. NO SOB NOTED. NO S/SX OF RESPIRATORY DISTRESS NOTED. TELE MONITOR DETECTS SINUS RHYTHM IN 60s. IV ACCESS IN SAMANTHA MIDLINE.IV IS INTACT, PATENT, AND FLUSHING WELL. G-TUBE RUNNING JEVITY @ 35 ML/HR. SAFETY PRECAUTIONS IN PLACE: BED IN LOWEST, LOCKED POSITION, SIDERAILS UPx2, AND BRAKES ON. TABLE AND CALL LIGHT WITHIN REACH. WILL CONTINUE TO MONITOR.
[2022-01-01] MEDS: FENOFIBRATE NANOCRYS (145 MG) 145 MG TABLET GT SCH (21:50)
[2022-01-01] MEDS ORDERED: VANCOMYCIN 1 GM in IV D5W 250ml IV SCH (23:00)
[2022-01-02] MEDS: BLOOD SUGAR DIAGNOSTIC 1 EACH STRIP IN SCH ×4 (00:04→18:07)
[2022-01-02] MEDS: INSULIN REGULAR, HUMAN 100 UNIT/ML 3 ML VIAL SQ PRN ×2 (00:04→18:15)
[2022-01-02 03:29] VITALS: BP 138/68
[2022-01-02] MEDS: ZOSYN IVPB 3.375 G in IV D5W 50ml IV SCH ×4 (03:40→19:56)
[2022-01-02] MEDS: JEVITY 1.2 CAL 1,000 ML BOTTLE GT PRN (05:35)
--- NOTE | 2022-01-02 07:26 | NUR ---
RN CLOSING NOTES PT IN BED, AWAKE. AOx2-3, ABLE TO MAKE NEEDS KNOWN. ON TRACH 8 LPM AND TOLERATING WELL. NO SOB NOTED. NO S/SX OF RESPIRATORY DISTRESS NOTED. TELE MONITOR DETECTS SINUS RHYTHM IN 60s. IV ACCESS IN SAMANTHA MIDLINE. IV IS INTACT, PATENT, AND FLUSHING WELL. G-TUBE RUNNING JEVITY @ 35 ML/HR. ALL NEEDS MET. PT KEPT CLEAN AND DRY. SAFETY PRECAUTIONS IN PLACE: BED IN LOWEST, LOCKED POSITION, SIDERAILS UPx2, AND BRAKES ON. TABLE AND CALL LIGHT WITHIN REACH. WILL ENDORSE TO ONCOMING SHIFT.
--- NOTE | 2022-01-02 07:52 | NUR ---
RN OPENING NOTES RECEIVED Pt IN BED, AWAKE. AOx2, Pt is ON TRACH 8 LPM AND TOLERATING WELL. NO SOB NOTED. NO S/SX OF RESPIRATORY DISTRESS NOTED. IV ACCESS ON R UA MIDLINE. IV IS INTACT, PATENT, AND FLUSHING WELL. G-TUBE RUNNING JEVITY @ 35 ML/HR. SAFETY PRECAUTIONS IN PLACE: BED IS LOCKED AND IN LOWEST POSITION, SIDE RAILS UPx2, AND BRAKES ON. TABLE AND CALL LIGHT WITHIN REACH. WILL CONTINUE TO MONITOR.
[2022-01-02 08:45] VITALS: BP 175/67
[2022-01-02 08:51] LABS: CALCIUM, SERUM 8.6 mg/dL (8.5-10.1); CREATININE 1.5 mg/dL (0.6-1.3); POTASSIUM 3.1 mmol/L (3.5-5.1)
[2022-01-02] MEDS: LEVETIRACETAM SOL (5 ML) 100 MG/ML UDC GT SCH ×2 (10:25→20:45)
[2022-01-02] MEDS: DIVALPROEX SODIUM 125 MG CAP.SPRINK GT SCH ×3 (10:26→18:12)
[2022-01-02] MEDS: DOCUSATE SODIUM LIQ 100 MG/10 ML UDC GT SCH ×2 (10:26→18:09)
[2022-01-02] MEDS: CLONIDINE HCL 0.1 MG TABLET GT SCH ×2 (10:26→20:45)
[2022-01-02] MEDS: PANTOPRAZOLE 40 MG/PACK PACK GT SCH (10:27)
[2022-01-02] MEDS: FERROUS SULFATE (325 MG) 325 MG/TAB TABLET GT SCH (10:27)
[2022-01-02] MEDS: HEPARIN SODIUM, PORCINE 5000 UNITS/1 ML VIAL SQ SCH ×2 (10:28→20:49)
[2022-01-02] MEDS: Z GUARD REMEDY 4 OZ OINT TP SCH ×2 (10:29→20:45)
[2022-01-02] MEDS: MUPIROCIN 2% CREAM 22 GM TUBE TP SCH ×2 (10:30→18:13)
[2022-01-02 16:09] VITALS: BP 176/75
--- NOTE | 2022-01-02 18:35 | NUR ---
RN CLOSING NOTES Pt IS IN BED, AWAKE. AOx2-3, ABLE TO MAKE NEEDS KNOWN. Pt IS ON TRACH 8 LPM AND TOLERATING WELL. NO SOB NOTED. NO S/SX OF RESPIRATORY DISTRESS NOTED. TELE MONITOR DETECTS SINUS RHYTHM IN 70s AT THIS TIME. Pt's R UA MIDLINE IS CURRENTLY NOT PATENT AND CURRENTLY AWAITING FOR MIDLINE NURSE TO INSERT A NEW ONE. CHARGE NURSE NOTIFIED. G-TUBE RUNNING JEVITY @ 55 ML/HR AND CAN BE INCREASED TO MEET GOAL OF 75mL/hr. ALL NEEDS MET. Pt KEPT CLEAN AND DRY. SAFETY MEASURES ARE IN PLACE: BED IS LOCKED AND IN LOWEST POSITION, SIDE RAILS UP x3, BED SIDE TABLE AND CALL LIGHT ARE WITHIN REACH. WILL ENDORSE TO ONCOMING SHIFT.
[2022-01-02 20:00] VITALS: BP 141/70
[2022-01-02] MEDS: FENOFIBRATE NANOCRYS (145 MG) 145 MG TABLET GT SCH (20:46)
[2022-01-03] VITALS: BP 152/68
[2022-01-03] MEDS: BLOOD SUGAR DIAGNOSTIC 1 EACH STRIP IN SCH ×3 (00:03→12:53)
[2022-01-03] MEDS: INSULIN REGULAR, HUMAN 100 UNIT/ML 3 ML VIAL SQ PRN ×3 (00:05→12:58)
[2022-01-03] MEDS ORDERED: POTASSIUM CHLORIDE 20 MEQ POWDER PACKET GT ONE (00:30)
[2022-01-03] MEDS: ZOSYN IVPB 3.375 G in IV D5W 50ml IV SCH ×3 (02:14→13:54)
[2022-01-03 04:00] VITALS: BP 144/81
[2022-01-03] MEDS: JEVITY 1.2 CAL 1,000 ML BOTTLE GT PRN (04:12)
--- NOTE | 2022-01-03 06:30 | NUR ---
Patient has been A&Ox2 overnight in no signs of distress. Denies pain or discomfort. Had x1 very large BM brown and soft, cleaned well. Turned q2h, offloaded L side d/t severe weakness. On the tele monitor patient has been SR in 60s, 70s. GT feeding up to 65cc/hr -no residual noted, tolerating well. SAMANTHA midline flushed and patent. No s/s of hypo or hyperglycemic reactions noted. Tolerating IV ABX well.
[2022-01-03 07:13] LABS: CALCIUM, SERUM 8.4 mg/dL (8.5-10.1); CREATININE 1.5 mg/dL (0.6-1.3); POTASSIUM 3.6 mmol/L (3.5-5.1)
--- NOTE | 2022-01-03 07:30 | NUR ---
RN VISITING OPENING NOTE Patient in bed, asleep. A/O x 2-3. On trach connected to O2 at 8 LPM, breathing evenly and unlabored. No SOB or s/s of distress noted. IV access on SAMANTHA midline, SL intact and patent. GT in place running Jevity 1.2 at 65 ml/hr, tolerating well. On tele monitoring showing SR, HR on the 70's. Safety precautions in place: bed in low, locked position; siderails up x 2; call light within reach. Will continue to monitor.
[2022-01-03 08:12] VITALS: BP 165/77
[2022-01-03] MEDS: Z GUARD REMEDY 4 OZ OINT TP SCH (09:00)
[2022-01-03] MEDS: CLONIDINE HCL 0.1 MG TABLET GT SCH (09:45)
[2022-01-03] MEDS: LEVETIRACETAM SOL (5 ML) 100 MG/ML UDC GT SCH (09:46)
[2022-01-03] MEDS: DOCUSATE SODIUM LIQ 100 MG/10 ML UDC GT SCH (09:46)
[2022-01-03] MEDS: PANTOPRAZOLE 40 MG/PACK PACK GT SCH (09:46)
[2022-01-03] MEDS: FERROUS SULFATE (325 MG) 325 MG/TAB TABLET GT SCH (09:46)
[2022-01-03] MEDS: HEPARIN SODIUM, PORCINE 5000 UNITS/1 ML VIAL SQ SCH (09:48)
[2022-01-03] MEDS: DIVALPROEX SODIUM 125 MG CAP.SPRINK GT SCH ×2 (09:50→13:58)
[2022-01-03] MEDS: MUPIROCIN 2% CREAM 22 GM TUBE TP SCH (10:11)
[2022-01-03 12:46] VITALS: BP 168/79
--- NOTE | 2022-01-03 14:40 | NUR ---
DISCHARGE NOTE Received order for discharge. Patient is A/O x 2, able to answer simple questions. On trach at 8 LPM, breathing evenly and unlabored. No SOB or s/s of distress noted. Report given to [facility]. IV access on SAMANTHA midline retained, patient to continue IV antibiotics at the SNF. GT in place, intact. Patient refused to have photos taken. ID band removed. Exitcare folder given to EMT. Patient left in stable condition via ambulance with 2 brigadier present.
== END 2022-01-03 15:33 | DRG 871 ==
LOC: ER 13:18 → TRANSITION 18:22 → TELE 12-29 10:12
PROVIDERS: ADMIT Nurse Practitioner Acute Care; ATTEND Internal Medicine
PROC: 05HB33Z Insertion of Infusion Device into Right Basilic Vein, Percutaneous Approach (ICD-10-PCS; principal; 2021-12-28)
PROC: 05HD33Z Insertion of Infusion Device into Right Cephalic Vein, Percutaneous Approach (ICD-10-PCS; 2022-01-02)
DX: A41.9 Sepsis, unspecified organism (principal); J96.20 Acute and chronic respiratory failure, unspecified whether with hypoxia or hypercapnia; N17.0 Acute kidney failure with tubular necrosis; I69.354 Hemiplegia and hemiparesis following cerebral infarction affecting left non-dominant side; E44.0 Moderate protein-calorie malnutrition; D68.59 Other primary thrombophilia; E87.2 Acidosis; G93.40 Encephalopathy, unspecified; G91.9 Hydrocephalus, unspecified; G96.08 Other cranial cerebrospinal fluid leak; R13.10 Dysphagia, unspecified; Z20.822 Contact with and (suspected) exposure to COVID-19; Z93.1 Gastrostomy status; E11.22 Type 2 diabetes mellitus with diabetic chronic kidney disease; D63.8 Anemia in other chronic diseases classified elsewhere; Z93.0 Tracheostomy status; Z98.2 Presence of cerebrospinal fluid drainage device; Z79.51 Long term (current) use of inhaled steroids; Z79.899 Other long term (current) drug therapy; Z79.84 Long term (current) use of oral hypoglycemic drugs; Z79.82 Long term (current) use of aspirin; G40.909 Epilepsy, unspecified, not intractable, without status epilepticus; G93.89 Other specified disorders of brain; Z74.01 Bed confinement status; Z98.890 Other specified postprocedural states; Z74.09 Other reduced mobility; E86.0 Dehydration; E87.6 Hypokalemia; E88.09 Other disorders of plasma-protein metabolism, not elsewhere classified; E66.9 Obesity, unspecified; Z68.31 Body mass index [BMI] 31.0-31.9, adult; I12.9 Hypertensive chronic kidney disease with stage 1 through stage 4 chronic kidney disease, or unspecified chronic kidney disease; N18.9 Chronic kidney disease, unspecified; K62.89 Other specified diseases of anus and rectum; I70.8 Atherosclerosis of other arteries; K40.90 Unilateral inguinal hernia, without obstruction or gangrene, not specified as recurrent; K76.0 Fatty (change of) liver, not elsewhere classified; L89.151 Pressure ulcer of sacral region, stage 1
CPT/HCPCS: 36410; 36415; 70260-TC; 70360-TC; 70450-TC; 71045-TC; 71046; 74018; 80048-TC; 80076-TC; 80202-TC; 81001; 82962-TC; 83605-TC; 83735-TC; 84100-TC; 84443-TC; 84484-TC; 85025-TC; 85730-TC; 87040-TC; 87081-TC; 87086-TC; 92521; 92526; 93307-TC; G0378; J1644; J1815; J1953; J2270; J2543; J3370; J7030; J7050; J7060